=== PATIENT | male | born 1970 | race African-American/Black ===

== ENCOUNTER 2017-08-28 02:42 | Inpatient (IN) | payer MEDICAID, MEDICARE ==
[~2017-08-28] VITALS: Ht 182.9 cm; Wt 139.5 kg
[~2017-08-28 02:42] MED LIST: ATOR10TA84 PO; BACTDSB PO; INSLAN SQ; INSNOV SQ; PERCT10 PO
[2017-08-28 02:52] LABS: GLUCOSE,POINT OF CARE 192 MG/DL (70-110)
[2017-08-28] MEDS ORDERED: 0.9% SODIUM CHLORIDE 10 ML SYRINGE IVP PRN (06:30)
[2017-08-28] MEDS ORDERED: PROMETHAZINE HCL 25 MG TABLET PO ONE (06:30)
[2017-08-28] MEDS ORDERED: OxyCODONE HCL/ACETAMINOPHEN 10-325 MG TABLET PO ONE (06:30)
[2017-08-28 07:55] LABS: BASOPHILS % (AUTO) 1.3 % (0.0-2.0); EOSINOPHILS % (AUTO) 4.5 % (1.0-6.0); HEMATOCRIT 31.5 % (41-53); HEMOGLOBIN 10.8 g/dL (13.5-17.5); LYMPHOCYTES # (AUTO) 2.2 K/uL (1.0-4.8); LYMPHOCYTES % (AUTO) 34.5 % (22.0-44.0); MEAN CORPUSCULAR HEMOGLOBIN 26.2 pg (26.0-34.0); MEAN CORPUSCULAR HGB CONC 34.2 G/dL (31.0-37.0); MEAN CORPUSCULAR VOLUME 77 fL (80-100); MONOCYTES # (AUTO) 0.4 K/uL (0.1-1.0); MONOCYTES % (AUTO) 6.1 % (2.0-9.0); NEUTROPHILS # (AUTO) 3.4 K/uL (1.8-7.7); NEUTROPHILS % (AUTO) 53.6 % (40.0-70.0); PLATELET COUNT (AUTO) 368 K/uL (150-450); RED BLOOD CELL COUNT(AUTO) 4.11 MIL/uL (4.50-5.90); RED CELL DISTRIBUTION WIDTH 15.5 % (11.5-14.5)
[2017-08-28 08:09] LABS: PROTHROMBIN TIME 10.7 SEC (9.4-11.6)
[2017-08-28 08:14] LABS: LACTIC ACID 1.3 mmol/L (0.4-2.0)
[2017-08-28 08:20] LABS: ANION GAP 8 mmol/L (8-16); CALCIUM, TOTAL 8.8 mg/dL (8.8-10.5); CARBON DIOXIDE 26 mmol/L (22-29); CHLORIDE 101 mmol/L (98-107); CREATININE 0.98 mg/dL (0.60-1.30); GLOMERULAR FILTR. RATE CALC > 60 mL/min (>60); GLUCOSE,RANDOM 210 mg/dL (70-110); POTASSIUM 3.7 mmol/L (3.5-5.1); SODIUM SERUM 135 mmol/L (136-145); UREA NITROGEN, BLOOD 16 mg/dL (7-18)
[2017-08-28 08:21] LABS: ALANINE AMINOTRANSFERASE 20 U/L (12-78); ALBUMIN 3.5 g/dL (3.4-5.0); ALKALINE PHOSPHATASE 116 U/L (46-116); ASPARTATE AMINOTRANSFERASE 19 U/L (15-37); BILIRUBIN,TOTAL 0.4 mg/dL (0.1-1.0); TOTAL PROTEIN, SERUM 8.1 g/dL (6.4-8.2)
[2017-08-28] MEDS ORDERED: BISACODYL 10 MG RECTAL RECTAL SUPPOSITORY PR PRN (13:00)
[2017-08-28] MEDS ORDERED: ZOLPIDEM TARTRATE 5 MG TABLET PO PRN (13:00)
[2017-08-28] MEDS ORDERED: MORPHINE SULFATE 4 MG/ML SYRINGE IVP PRN (13:00)
[2017-08-28] MEDS ORDERED: ACETAMINOPHEN 325 MG TABLET PO PRN (13:00)
[2017-08-28] MEDS ORDERED: MAGNESIUM HYDROXIDE SUSPENSION 30 ML UDCUP PO PRN (13:00)
[2017-08-28] MEDS ORDERED: ONDANSETRON HCL 4 MG/2 ML VIAL IVP PRN (13:00)
[2017-08-28 14:09] VITALS: BP 123/86
[2017-08-28] MEDS: HEPARIN SODIUM,PORCINE 5,000 UNITS/ML VIAL SQ SCH ×3 (16:00→23:27)
[2017-08-28 16:06] LABS: BILIRUBIN,URINE NEGATIVE (NEGATIVE); GLUCOSE, URINE (UA) NEGATIVE (NEGATIVE); KETONES,URINE NEGATIVE (NEGATIVE); LEUKOCYTE ESTERASE ,URINE NEGATIVE (NEGATIVE); NITRATE,URINE NEGATIVE (NEGATIVE); OCCULT BLOOD,URINE SMALL (NEGATIVE); PROTEIN,URINE SEE CONFIRM (NEGATIVE); UROBILINOGEN,URINE 0.2 mg/dL (<=1.0)
[2017-08-28 16:15] LABS: APPEARANCE,URINE HAZY (CLEAR); SULFOSALICYLIC ACID,URINE 2+ (Negative)
[2017-08-28 16:16] LABS: BACTERIA,URINE None Seen /HPF (None Seen); WBC,URINE 0-2 /HPF (0-5)
[2017-08-28 17:12] VITALS: BP 159/98
[2017-08-28] MEDS ORDERED: SODIUM CHLORIDE 0.9% 500 ML IV ONE (17:16)
[2017-08-28] MEDS: OxyCODONE HCL/ACETAMINOPHEN 10-325 MG TABLET PO PRN ×2 (17:24→23:27)
[2017-08-28] MEDS ORDERED: INSULIN ASPART SQ SCH (18:00)
[2017-08-28] MEDS ORDERED: DEXTROSE 50%-WATER 25 GM/50 ML SYRINGE IVP PRN (18:00)
[2017-08-28] MEDS: INSULIN LISPRO 100 UNITS/ML SQ PRN ×2 (18:35→22:24)
[2017-08-28] MEDS ORDERED: PNEUMOCOCCAL VACCINE POLYVALENT 0.5 ML VIAL [PPSV23] IM ONE (19:30)
[2017-08-28 19:38] VITALS: BP 145/80
[2017-08-28 20:58] LABS: GLUCOMETER DEV NAME(LOC) 6N 2D; GLUCOSE,POINT OF CARE 343 MG/DL (70-110)
[2017-08-28] MEDS: DOCUSATE SODIUM 100 MG CAPSULE PO SCH (21:00)
[2017-08-28 23:32] VITALS: BP 158/79
[2017-08-28 23:32] LABS: GLUCOMETER DEV NAME(LOC) 6N 2D; GLUCOSE,POINT OF CARE 302 MG/DL (70-110)
[2017-08-29] MEDS: OxyCODONE HCL/ACETAMINOPHEN 10-325 MG TABLET PO PRN ×3 (05:32→17:49)
[2017-08-29] MEDS: INSULIN LISPRO 100 UNITS/ML SQ PRN ×3 (06:13→22:19)
[2017-08-29 06:32] LABS: GLUCOMETER DEV NAME(LOC) 6N 2D; GLUCOSE,POINT OF CARE 334 MG/DL (70-110)
[2017-08-29 08:00] VITALS: BP 145/75
[2017-08-29] MEDS: HEPARIN SODIUM,PORCINE 5,000 UNITS/ML VIAL SQ SCH ×2 (08:00→16:00)
[2017-08-29] MEDS: DOCUSATE SODIUM 100 MG CAPSULE PO SCH ×2 (09:00→19:54)
[2017-08-29] MEDS: ATORVASTATIN CALCIUM 10 MG TABLET PO SCH (10:01)
[2017-08-29] MEDS: PANTOPRAZOLE SODIUM 40 MG DR TABLET PO SCH (10:01)
[2017-08-29] MEDS: INSULIN GLARGINE,HUM.REC.ANLOG 100 UNITS/ML SQ SCH (10:07)
[2017-08-29 11:37] LABS: GLUCOMETER DEV NAME(LOC) 6N 2D; GLUCOSE,POINT OF CARE 207 MG/DL (70-110)
[2017-08-29] MEDS ORDERED: SODIUM CHLORIDE 0.9% 2,000 ML IV ONE (12:09)
[2017-08-29 12:43] VITALS: BP 151/78
[2017-08-29] MEDS ORDERED: GADOBUTROL 1 MMOL/ML 10 ML VIAL IVP ONE (13:36)
[2017-08-29 14:17] LABS: GLUCOMETER DEV NAME(LOC) 6N 1E; GLUCOSE,POINT OF CARE 243 MG/DL (70-110)
[2017-08-29 22:28] LABS: GLUCOMETER DEV NAME(LOC) 6N 1E; GLUCOSE,POINT OF CARE 324 MG/DL (70-110)
[2017-08-30] MEDS: OxyCODONE HCL/ACETAMINOPHEN 10-325 MG TABLET PO PRN ×4 (00:03→18:00)
[2017-08-30 00:06] VITALS: BP 189/99
[2017-08-30 06:33] LABS: GLUCOMETER DEV NAME(LOC) 6N 2D; GLUCOSE,POINT OF CARE 266 MG/DL (70-110)
[2017-08-30 07:14] LABS: ANION GAP 11 mmol/L (8-16); CALCIUM, TOTAL 9.3 mg/dL (8.8-10.5); CARBON DIOXIDE 24 mmol/L (22-29); CHLORIDE 100 mmol/L (98-107); CREATININE 1.09 mg/dL (0.60-1.30); GLOMERULAR FILTR. RATE CALC > 60 mL/min (>60); GLUCOSE,RANDOM 299 mg/dL (70-110); SODIUM SERUM 135 mmol/L (136-145); UREA NITROGEN, BLOOD 14 mg/dL (7-18)
[2017-08-30 08:00] VITALS: BP 174/101
[2017-08-30] MEDS: HEPARIN SODIUM,PORCINE 5,000 UNITS/ML VIAL SQ SCH ×3 (08:00→14:46)
[2017-08-30] MEDS: VANCOMYCIN HCL 1.5 GM in DEXTROSE 5%-WATER 250 ML IV SCH ×2 (08:00→17:20)
[2017-08-30] MEDS: ATORVASTATIN CALCIUM 10 MG TABLET PO SCH (08:06)
[2017-08-30] MEDS: DOCUSATE SODIUM 100 MG CAPSULE PO SCH ×2 (08:06→20:55)
[2017-08-30] MEDS: MULTIVITAMINS WITH MINERALS, THERAPEUTIC TABLET PO SCH (08:06)
[2017-08-30] MEDS: PANTOPRAZOLE SODIUM 40 MG DR TABLET PO SCH (08:07)
[2017-08-30] MEDS: INSULIN GLARGINE,HUM.REC.ANLOG 100 UNITS/ML SQ SCH (08:10)
[2017-08-30] MEDS: AmLODIPine BESYLATE 10 MG TABLET PO SCH (11:47)
[2017-08-30] MEDS: INSULIN LISPRO 100 UNITS/ML SQ PRN ×3 (12:00→20:55)
[2017-08-30 12:14] VITALS: BP 175/90
[2017-08-30 13:37] LABS: GLUCOMETER DEV NAME(LOC) 6N 2D; GLUCOSE,POINT OF CARE 331 MG/DL (70-110)
[2017-08-30] MEDS: MORPHINE SULFATE 4 MG/ML SYRINGE IVP PRN ×2 (13:46→21:47)
[2017-08-30] MEDS ORDERED: GADOBUTROL 1 MMOL/ML 10 ML VIAL IVP ONE (13:46)
[2017-08-30] MEDS ORDERED: SODIUM CHLORIDE 0.9% 250 ML IV ONE (14:47)
[2017-08-30 15:56] VITALS: BP 155/102
[2017-08-30 17:37] LABS: GLUCOMETER DEV NAME(LOC) 6N 1E; GLUCOSE,POINT OF CARE 286 MG/DL (70-110)
[2017-08-30 20:08] VITALS: BP 164/97
[2017-08-30 22:37] LABS: GLUCOMETER DEV NAME(LOC) 6N 2D; GLUCOSE,POINT OF CARE 239 MG/DL (70-110)
[2017-08-30 23:56] VITALS: BP 178/98
[2017-08-31] MEDS: OxyCODONE HCL/ACETAMINOPHEN 10-325 MG TABLET PO PRN ×4 (00:01→20:13)
[2017-08-31] MEDS: LISINOPRIL 5 MG TABLET PO SCH ×2 (01:15→08:37)
[2017-08-31] MEDS: VANCOMYCIN HCL 1.5 GM in DEXTROSE 5%-WATER 250 ML IV SCH ×3 (01:15→18:27)
[2017-08-31 04:42] VITALS: BP 177/109
[2017-08-31] MEDS: HydrALAZINE HCL 25 MG TABLET PO PRN (04:47)
[2017-08-31] MEDS: MORPHINE SULFATE 4 MG/ML SYRINGE IVP PRN ×3 (05:55→23:22)
[2017-08-31 06:13] LABS: GLUCOMETER DEV NAME(LOC) 6N 1E; GLUCOSE,POINT OF CARE 254 MG/DL (70-110)
[2017-08-31] MEDS: INSULIN LISPRO 100 UNITS/ML SQ PRN ×3 (07:50→20:19)
[2017-08-31] MEDS: HEPARIN SODIUM,PORCINE 5,000 UNITS/ML VIAL SQ SCH ×3 (08:00→16:00)
[2017-08-31 08:35] VITALS: BP 127/86
[2017-08-31] MEDS: AmLODIPine BESYLATE 10 MG TABLET PO SCH (08:37)
[2017-08-31] MEDS: MULTIVITAMINS WITH MINERALS, THERAPEUTIC TABLET PO SCH (08:38)
[2017-08-31] MEDS: ATORVASTATIN CALCIUM 10 MG TABLET PO SCH (08:38)
[2017-08-31] MEDS: PANTOPRAZOLE SODIUM 40 MG DR TABLET PO SCH (08:38)
[2017-08-31] MEDS: DOCUSATE SODIUM 100 MG CAPSULE PO SCH ×3 (09:00→20:13)
[2017-08-31] MEDS: INSULIN GLARGINE,HUM.REC.ANLOG 100 UNITS/ML SQ SCH (10:04)
[2017-08-31 10:48] LABS: ANION GAP 10 mmol/L (8-16); CARBON DIOXIDE 25 mmol/L (22-29); CHLORIDE 100 mmol/L (98-107); CREATININE 1.15 mg/dL (0.60-1.30); GLOMERULAR FILTR. RATE CALC > 60 mL/min (>60); GLUCOSE,RANDOM 306 mg/dL (70-110); POTASSIUM 4.4 mmol/L (3.5-5.1); SODIUM SERUM 135 mmol/L (136-145); UREA NITROGEN, BLOOD 19 mg/dL (7-18)
[2017-08-31 11:23] VITALS: BP 155/81
[2017-08-31 11:27] LABS: GLUCOMETER DEV NAME(LOC) 6N 1E; GLUCOSE,POINT OF CARE 328 MG/DL (70-110)
[2017-08-31 14:12] VITALS: BP 153/96
[2017-08-31 18:54] LABS: GLUCOMETER DEV NAME(LOC) 6N 1E; GLUCOSE,POINT OF CARE 376 MG/DL (70-110)
[2017-08-31 21:14] LABS: GLUCOMETER DEV NAME(LOC) 6N 1E; GLUCOSE,POINT OF CARE 312 MG/DL (70-110)
[2017-09-01] VITALS: BP 152/86
[2017-09-01] MEDS: VANCOMYCIN HCL 1.5 GM in DEXTROSE 5%-WATER 250 ML IV SCH ×5 (00:34→23:20)
[2017-09-01] MEDS: HEPARIN SODIUM,PORCINE 5,000 UNITS/ML VIAL SQ SCH ×4 (00:34→23:20)
[2017-09-01] MEDS: OxyCODONE HCL/ACETAMINOPHEN 10-325 MG TABLET PO PRN ×5 (02:03→20:40)
[2017-09-01 08:00] VITALS: BP 148/93
[2017-09-01] MEDS: MORPHINE SULFATE 4 MG/ML SYRINGE IVP PRN ×2 (08:21→16:12)
[2017-09-01] MEDS: DOCUSATE SODIUM 100 MG CAPSULE PO SCH ×2 (09:00→19:44)
[2017-09-01 09:12] LABS: ANION GAP 10 mmol/L (8-16); CALCIUM, TOTAL 9.2 mg/dL (8.8-10.5); CARBON DIOXIDE 25 mmol/L (22-29); CHLORIDE 101 mmol/L (98-107); CREATININE 1.25 mg/dL (0.60-1.30); GLOMERULAR FILTR. RATE CALC > 60 mL/min (>60); GLUCOSE,RANDOM 276 mg/dL (70-110); POTASSIUM 4.1 mmol/L (3.5-5.1); SODIUM SERUM 136 mmol/L (136-145); UREA NITROGEN, BLOOD 18 mg/dL (7-18); VANCOMYCIN,RANDOM 19.6 mcg/mL (25.0-50.0)
[2017-09-01] MEDS: INSULIN LISPRO 100 UNITS/ML SQ PRN ×4 (09:12→19:51)
[2017-09-01] MEDS: ATORVASTATIN CALCIUM 10 MG TABLET PO SCH (09:14)
[2017-09-01] MEDS: AmLODIPine BESYLATE 10 MG TABLET PO SCH (09:14)
[2017-09-01] MEDS: LISINOPRIL 5 MG TABLET PO SCH (09:14)
[2017-09-01] MEDS: PANTOPRAZOLE SODIUM 40 MG DR TABLET PO SCH (09:14)
[2017-09-01] MEDS: MULTIVITAMINS WITH MINERALS, THERAPEUTIC TABLET PO SCH (09:14)
[2017-09-01] MEDS ORDERED: SODIUM CHLORIDE 0.9% 500 ML IV ONE (09:17)
[2017-09-01 11:48] LABS: GLUCOMETER DEV NAME(LOC) 6N 2D; GLUCOSE,POINT OF CARE 244 MG/DL (70-110)
[2017-09-01 12:07] LABS: GLUCOMETER DEV NAME(LOC) 6N 1E; GLUCOSE,POINT OF CARE 268 MG/DL (70-110)
[2017-09-01] MEDS: INSULIN GLARGINE,HUM.REC.ANLOG 100 UNITS/ML SQ SCH (12:24)
[2017-09-01 15:54] VITALS: BP 168/106
[2017-09-01 19:58] LABS: GLUCOMETER DEV NAME(LOC) 6N 2D; GLUCOSE,POINT OF CARE 262 MG/DL (70-110)
[2017-09-01 20:00] VITALS: BP 165/98
[2017-09-01] MEDS: HydrALAZINE HCL 25 MG TABLET PO PRN (21:57)
[2017-09-01 23:36] VITALS: BP 158/94
[2017-09-01 23:51] LABS: GLUCOMETER DEV NAME(LOC) 6N 1E; GLUCOSE,POINT OF CARE 346 MG/DL (70-110)
[2017-09-01 23:52] LABS: GLUCOMETER DEV NAME(LOC) 6N 1E; GLUCOSE,POINT OF CARE 331 MG/DL (70-110)
[2017-09-02] MEDS: OxyCODONE HCL/ACETAMINOPHEN 10-325 MG TABLET PO PRN ×3 (01:44→16:51)
[2017-09-02] MEDS: MORPHINE SULFATE 4 MG/ML SYRINGE IVP PRN ×3 (02:48→15:19)
[2017-09-02 04:00] VITALS: BP 149/94
[2017-09-02 06:18] LABS: GLUCOMETER DEV NAME(LOC) 6N 1E; GLUCOSE,POINT OF CARE 281 MG/DL (70-110)
[2017-09-02 07:16] LABS: ANION GAP 5 mmol/L (8-16); CALCIUM, TOTAL 8.9 mg/dL (8.8-10.5); CARBON DIOXIDE 29 mmol/L (22-29); CHLORIDE 100 mmol/L (98-107); CREATININE 1.07 mg/dL (0.60-1.30); GLOMERULAR FILTR. RATE CALC > 60 mL/min (>60); GLUCOSE,RANDOM 298 mg/dL (70-110); POTASSIUM 3.8 mmol/L (3.5-5.1); SODIUM SERUM 134 mmol/L (136-145); UREA NITROGEN, BLOOD 19 mg/dL (7-18)
[2017-09-02] MEDS: VANCOMYCIN HCL 1.5 GM in DEXTROSE 5%-WATER 250 ML IV SCH ×2 (08:00→16:00)
[2017-09-02] MEDS: HEPARIN SODIUM,PORCINE 5,000 UNITS/ML VIAL SQ SCH ×2 (08:00→16:00)
[2017-09-02] MEDS: MULTIVITAMINS WITH MINERALS, THERAPEUTIC TABLET PO SCH (09:00)
[2017-09-02] MEDS: DOCUSATE SODIUM 100 MG CAPSULE PO SCH ×2 (09:00→19:34)
[2017-09-02] MEDS: AmLODIPine BESYLATE 10 MG TABLET PO SCH (09:00)
[2017-09-02] MEDS: LISINOPRIL 5 MG TABLET PO SCH (09:00)
[2017-09-02] MEDS: ATORVASTATIN CALCIUM 10 MG TABLET PO SCH (09:00)
[2017-09-02] MEDS: INSULIN GLARGINE,HUM.REC.ANLOG 100 UNITS/ML SQ SCH (09:18)
[2017-09-02] MEDS: PANTOPRAZOLE SODIUM 40 MG DR TABLET PO SCH (10:35)
[2017-09-02] MEDS: INSULIN LISPRO 100 UNITS/ML SQ PRN ×3 (13:13→19:44)
[2017-09-02 17:34] VITALS: BP 181/98
[2017-09-02] MEDS: HydrALAZINE HCL 25 MG TABLET PO PRN (17:38)
[2017-09-02] MEDS ORDERED: LISINOPRIL 5 MG TABLET PO ONE (17:45)
[2017-09-02 19:32] LABS: GLUCOMETER DEV NAME(LOC) 6N 1E; GLUCOSE,POINT OF CARE 276 MG/DL (70-110)
[2017-09-02 19:32] LABS: GLUCOMETER DEV NAME(LOC) 6N 1E; GLUCOSE,POINT OF CARE 307 MG/DL (70-110)
[2017-09-02] MEDS: HYDROmorphone 2 MG/ML SYRINGE IVP PRN (19:34)
[2017-09-02 19:52] VITALS: BP 150/93
[2017-09-02 21:42] LABS: GLUCOMETER DEV NAME(LOC) 6N 2D; GLUCOSE,POINT OF CARE 214 MG/DL (70-110)
[2017-09-02 23:43] VITALS: BP 158/99
[2017-09-03] MEDS: HYDROmorphone 2 MG/ML SYRINGE IVP PRN ×4 (01:33→20:36)
[2017-09-03] MEDS: OxyCODONE HCL/ACETAMINOPHEN 10-325 MG TABLET PO PRN ×3 (05:45→18:58)
[2017-09-03] MEDS: INSULIN LISPRO 100 UNITS/ML SQ PRN ×4 (05:54→20:44)
[2017-09-03] MEDS: HEPARIN SODIUM,PORCINE 5,000 UNITS/ML VIAL SQ SCH ×3 (08:00→16:00)
[2017-09-03] MEDS: VANCOMYCIN HCL 1.5 GM in DEXTROSE 5%-WATER 250 ML IV SCH ×4 (08:00→16:00)
[2017-09-03] MEDS: DOCUSATE SODIUM 100 MG CAPSULE PO SCH ×2 (09:00→20:36)
[2017-09-03] MEDS: MULTIVITAMINS WITH MINERALS, THERAPEUTIC TABLET PO SCH (09:00)
[2017-09-03] MEDS: ATORVASTATIN CALCIUM 10 MG TABLET PO SCH (09:00)
[2017-09-03] MEDS: LISINOPRIL 10 MG TABLET PO SCH (09:00)
[2017-09-03] MEDS: AmLODIPine BESYLATE 10 MG TABLET PO SCH (09:00)
[2017-09-03] MEDS: PANTOPRAZOLE SODIUM 40 MG DR TABLET PO SCH (09:00)
[2017-09-03] MEDS: INSULIN GLARGINE,HUM.REC.ANLOG 100 UNITS/ML SQ SCH (09:53)
[2017-09-03 16:23] VITALS: BP 139/91
[2017-09-03 16:58] LABS: GLUCOMETER DEV NAME(LOC) 6N 2D; GLUCOSE,POINT OF CARE 316 MG/DL (70-110)
[2017-09-03 16:58] LABS: GLUCOMETER DEV NAME(LOC) 6N 2D; GLUCOSE,POINT OF CARE 242 MG/DL (70-110)
[2017-09-03 19:47] LABS: GLUCOMETER DEV NAME(LOC) 6N 1E; GLUCOSE,POINT OF CARE 316 MG/DL (70-110)
[2017-09-03 20:01] VITALS: BP 164/101
[2017-09-03 20:52] LABS: GLUCOMETER DEV NAME(LOC) 6N 1E; GLUCOSE,POINT OF CARE 308 MG/DL (70-110)
[2017-09-03 23:37] VITALS: BP 149/94
[2017-09-04] MEDS: OxyCODONE HCL/ACETAMINOPHEN 10-325 MG TABLET PO PRN ×2 (01:18→09:51)
[2017-09-04] MEDS: HYDROmorphone 2 MG/ML SYRINGE IVP PRN ×3 (02:38→14:53)
[2017-09-04 05:01] VITALS: BP 142/89
[2017-09-04] MEDS: VANCOMYCIN HCL 1.5 GM in DEXTROSE 5%-WATER 250 ML IV SCH ×4 (08:00→16:00)
[2017-09-04] MEDS: HEPARIN SODIUM,PORCINE 5,000 UNITS/ML VIAL SQ SCH ×3 (08:00→16:00)
[2017-09-04] MEDS: MULTIVITAMINS WITH MINERALS, THERAPEUTIC TABLET PO SCH (09:00)
[2017-09-04] MEDS: INSULIN LISPRO 100 UNITS/ML SQ PRN ×2 (09:16→11:59)
[2017-09-04] MEDS: INSULIN GLARGINE,HUM.REC.ANLOG 100 UNITS/ML SQ SCH (09:17)
[2017-09-04] MEDS: LISINOPRIL 10 MG TABLET PO SCH (09:47)
[2017-09-04] MEDS: PANTOPRAZOLE SODIUM 40 MG DR TABLET PO SCH (09:47)
[2017-09-04] MEDS: ATORVASTATIN CALCIUM 10 MG TABLET PO SCH (09:47)
[2017-09-04 10:22] LABS: GLUCOMETER DEV NAME(LOC) 6N 1E; GLUCOSE,POINT OF CARE 323 MG/DL (70-110)
[2017-09-04 11:46] VITALS: BP 174/100
[2017-09-04] MEDS: DOCUSATE SODIUM 100 MG CAPSULE PO SCH (11:46)
[2017-09-04] MEDS: AmLODIPine BESYLATE 10 MG TABLET PO SCH (11:46)
[2017-09-04 12:07] LABS: GLUCOMETER DEV NAME(LOC) 6N 1E; GLUCOSE,POINT OF CARE 336 MG/DL (70-110)
[2017-09-04] MEDS ORDERED: PERCT10 PO (15:13)
[2017-09-04] MEDS ORDERED: BACTDSB PO (15:13)
[2017-09-04] MEDS ORDERED: VANCOMYCIN HCL 1 GM/D5% WATER 200 ML IV PRN (15:15)
[2017-09-04] MEDS ORDERED: INSU3INS3 SQ (15:43)
[2017-09-04] MEDS ORDERED: AMLO-512 PO (15:44)
[2017-09-04] MEDS ORDERED: LISI-662 PO (15:46)
== END 2017-09-04 16:20 | disposition home or self-care (01) | DRG 638 ==
LOC: EMS 02:42 → 4E 10:03 → 6N 13:42
PROVIDERS: ADMIT Internal Medicine; ATTEND Internal Medicine
DX: E11.69 Type 2 diabetes mellitus with other specified complication (principal); E87.1 Hypo-osmolality and hyponatremia; M86.8X7 Other osteomyelitis, ankle and foot; E11.40 Type 2 diabetes mellitus with diabetic neuropathy, unspecified; E11.621 Type 2 diabetes mellitus with foot ulcer; F11.20 Opioid dependence, uncomplicated; I50.9 Heart failure, unspecified; I11.0 Hypertensive heart disease with heart failure; L97.429 Non-pressure chronic ulcer of left heel and midfoot with unspecified severity; L03.116 Cellulitis of left lower limb; Z68.41 Body mass index [BMI] 40.0-44.9, adult; D64.9 Anemia, unspecified; E66.9 Obesity, unspecified; E78.5 Hyperlipidemia, unspecified; B95.62 Methicillin resistant Staphylococcus aureus infection as the cause of diseases classified elsewhere; Z53.20 Procedure and treatment not carried out because of patient's decision for unspecified reasons; Z89.511 Acquired absence of right leg below knee; Z91.19 Patient's noncompliance with other medical treatment and regimen; Z88.8 Allergy status to other drugs, medicaments and biological substances; Z91.041 Radiographic dye allergy status; Z88.0 Allergy status to penicillin; Z91.013 Allergy to seafood; Z79.899 Other long term (current) drug therapy; Z79.4 Long term (current) use of insulin; Z86.14 Personal history of Methicillin resistant Staphylococcus aureus infection; Z87.891 Personal history of nicotine dependence; Z86.711 Personal history of pulmonary embolism; Z86.718 Personal history of other venous thrombosis and embolism; Z28.21 Immunization not carried out because of patient refusal
CPT/HCPCS: 73721; 83605; 84145; 87040; 87070; 87081; 87147; 87205; 93005; 93926; 93971; 99285; A9585; J1170; J1644; J1815; J2270; J3370; J7030; J7040; J7050; J7060

== ENCOUNTER 2018-04-16 20:17 | Emergency (ER) | payer MEDICARE, OTHER ==
[~2018-04-16] VITALS: Ht 185.4 cm; Wt 140.9 kg
[~2018-04-16 20:17] MED LIST changes: +AMLO-512 PO; -INSLAN SQ; +INSU3INS3 SQ; +LISI-662 PO
[2018-04-16 20:40] LABS: GLUCOSE,POINT OF CARE 330 MG/DL (70-110)
[2018-04-16] MEDS ORDERED: LEVO100 PO (20:49)
[2018-04-16] MEDS ORDERED: METO25 PO (20:49)
[2018-04-16] MEDS ORDERED: APIX5TAB PO (20:49)
[2018-04-16] MEDS ORDERED: ATOR10TA69 PO (20:49)
[2018-04-16] MEDS ORDERED: AMLO5TAB66 PO (20:49)
[2018-04-16] MEDS ORDERED: INSU100I15 SQ (20:49)
[2018-04-16] MEDS ORDERED: LISI-618 PO (20:49)
[2018-04-16] MEDS ORDERED: METF-446 PO (20:49)
[2018-04-16] MEDS ORDERED: PB/HYOSCY/ATR/SCOP/LIDO/MAALOX 55 ML BOTTLE PO ONE (21:45)
[2018-04-16 22:15] VITALS: BP 154/89
[2018-04-16 22:35] LABS: BASOPHILS % (AUTO) 1.7 % (0.0-2.0); EOSINOPHILS % (AUTO) 2.7 % (1.0-6.0); HEMATOCRIT 34.5 % (41-53); HEMOGLOBIN 11.4 g/dL (13.5-17.5); LYMPHOCYTES # (AUTO) 2.5 K/uL (1.0-4.8); LYMPHOCYTES % (AUTO) 45.8 % (22.0-44.0); MEAN CORPUSCULAR HEMOGLOBIN 24.1 pg (26.0-34.0); MEAN CORPUSCULAR HGB CONC 33.1 G/dL (31.0-37.0); MEAN CORPUSCULAR VOLUME 73 fL (80-100); MONOCYTES # (AUTO) 0.4 K/uL (0.1-1.0); MONOCYTES % (AUTO) 7.2 % (2.0-9.0); NEUTROPHILS # (AUTO) 2.3 K/uL (1.8-7.7); NEUTROPHILS % (AUTO) 42.6 % (40.0-70.0); PLATELET COUNT (AUTO) 396 K/uL (150-450); RED BLOOD CELL COUNT(AUTO) 4.73 MIL/uL (4.50-5.90); RED CELL DISTRIBUTION WIDTH 17.3 % (11.5-14.5)
== END 2018-04-16 22:48 | disposition home or self-care (01) ==
LOC: EMS 20:18
DX: M79.605 Pain in left leg (principal); I11.0 Hypertensive heart disease with heart failure; I50.9 Heart failure, unspecified; E11.9 Type 2 diabetes mellitus without complications; F17.210 Nicotine dependence, cigarettes, uncomplicated; Z79.4 Long term (current) use of insulin; Z89.512 Acquired absence of left leg below knee; Z89.511 Acquired absence of right leg below knee; Z79.899 Other long term (current) drug therapy; Z86.718 Personal history of other venous thrombosis and embolism; Z88.0 Allergy status to penicillin; Z88.8 Allergy status to other drugs, medicaments and biological substances; Z91.013 Allergy to seafood